=== PATIENT | female | born 1995 | race Caucasian/White ===

== ENCOUNTER 2017-01-07 19:27 | Emergency (ER) | payer BC ==
[2017-01-07] MEDS ORDERED: Venlafaxine EXT RELEASE CAP* 75 MG ONE (20:22)
[2017-01-07 20:26] VITALS: BP 124/75
[2017-01-08] MEDS ORDERED: Venlafaxine EXT RELEASE CAP* 75 MG PO ONE (19:52)
--- NOTE | 2017-01-31 08:20 | ED ---
Psychiatric Complaint - HPI Summary HPI Summary: Pt here w/ request for a 1 x refill of effexor. 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 Does not want to be w/o for fear of withdrawal. Takes 150mg and has for many months w/o difficulty. Denies EATON, numbness, tingling, visual change, chest pain, anxiety, SI/HI. - History Of Current Complaint Chief Complaint: EDGeneral Time Seen by Provider: 01/07/17 19:51 Hx Obtained From: Patient Hx Last Menstrual Period: seasonique q 2 months - Allergies/Home Medications Allergies/Adverse Reactions: Allergies Allergy/AdvReac Type Severity Reaction Status Date / Time Penicillins Allergy Intermediate Rash Unverified 01/07/17 19:33 Amoxicillin Allergy Rash Unverified 01/07/17 19:33 Sulfa Antibiotics Allergy Rash Unverified 01/07/17 19:33 PMH/Surg Hx/FS Hx/Imm Hx Previously Healthy: Yes Endocrine/Hematology History: Denies: Hx Anticoagulant Therapy, Hx Diabetes, Hx Thyroid Disease Cardiovascular History: Denies: Hx Hypertension, Hx Pacemaker/ICD Respiratory History: Reports: Hx Asthma - "only when I'm really exerting myself physically" Denies: Hx Chronic Obstructive Pulmonary Disease (COPD) GI History: Denies: Hx Ulcer History: Denies: Hx Renal Disease Musculoskeletal History: Denies: Hx Rheumatoid Arthritis, Hx Osteoporosis Neurological History: Denies: Hx Dementia, Hx Headaches, Hx Migraine, Hx Seizures Psychiatric History: Reports: Hx Depression - takes effexor 150mg daily Denies: Hx Eating Disorder, Hx of Violent Episodes Against Others, Hx Substance Abuse Infectious Disease History: No Infectious Disease History: Denies: Hx Hepatitis, Hx Human Immunodeficiency Virus (HIV), Hx Tuberculosis , Traveled Outside the [place] in Last 30 Days - Social History Alcohol Use: Rare Substance Use Type: Reports: Marijuana Substance Use Comment - Amount & Last Used: last use this morning Smoking Status (MU): Current Some Day Smoker Type: Cigarettes Review of Systems Negative: Fatigue Negative: Chest Pain Negative: Shortness Of Breath Negative: Vomiting, Nausea Positive: no symptoms reported Neurological: Negative Psychological: Normal All Other Systems Reviewed And Are Negative: Yes Physical Exam Triage Information Reviewed: Yes Vital Signs On Initial Exam: Initial Vitals Temp Pulse Resp BP Pulse Ox 97.4 F 91 16 136/96 100 01/07/17 19:30 01/07/17 19:30 01/07/17 19:30 01/07/17 19:30 01/07/17 19:30 Vital Signs Reviewed: Yes Appearance: Positive: Well-Appearing, No Pain Distress, Well-Nourished Skin: Positive: Warm, Dry Head/Face: Positive: Normal Head/Face Inspection Eyes: Positive: Normal, EOMI, Conjunctiva Clear ENT: Positive: Hearing grossly normal Neck: Positive: Supple Respiratory/Lung Sounds: Positive: Breath Sounds Present Cardiovascular: Positive: Normal, RRR, Pulses are Symmetrical in both Upper and Lower Extremities Musculoskeletal: Positive: Normal, Strength/ROM Intact Neurological: Positive: Normal, Sensory/Motor Intact, Alert, Oriented to Person Place, Time, CN Intact II-III Psychiatric: Positive: Normal - no SI/HI Diagnostics - Vital Signs Vital Signs Temp Pulse Resp BP Pulse Ox 01/07/17 20:24 97.7 F 78 18 124/75 98 01/07/17 19:41 97.4 F 81 17 136/96 99 01/07/17 19:30 97.4 F 91 16 136/96 100 - Laboratory Lab Statement: Any lab studies that have been ordered have been reviewed, and results considered in the medical decision making process. Course/Dx - Course Course Of Treatment: Pt agrees to refil medication tomorrow as her rx is at pharmacy - simple didn't make it in time before close to pick them up. Agrees if she develops danger s/sx of withdrawal (although she has not been without this for > 24 hours) to report back to ED. She will also return if she develops SI/HI. 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 *If you develop homicidal or suicidal ideations, return to ED
== END 2017-01-07 20:29 | disposition home or self-care (01) ==
LOC: ED 19:27
DX: Z76.0 Encounter for issue of repeat prescription (principal)
CPT/HCPCS: 99281; A9270-GY

== ENCOUNTER 2018-03-19 13:31 | Emergency (ER) | payer BC ==
[2018-03-19 13:44] VITALS: BP 140/101
--- NOTE | 2018-03-19 14:44 | ED ---
GI/ HPI - HPI Summary HPI Summary: 23 year old female presents with LLQ pelvic pain for the past day. She has never had this pain before. She did start amlodipine today for the first time and pain started afterwards. She denies any abnormal vaginal discharge. She admits to nausea. She denies any vomiting. She denies any diarrhea or constipation. no dysuria. states since she had intermittent abdominal pain. When it is persistent she is dizzy and feels hot. She has hx of depression and anxiety. has history of htn. currently on period. - History of Current Complaint Chief Complaint: UCAbdominalPain Time Seen by Provider: 03/19/18 14:29 Stated Complaint: PERSONAL Hx Last Menstrual Period: IUD Pain Intensity: 4 - Allergy/Home Medications Allergies/Adverse Reactions: Allergies Allergy/AdvReac Type Severity Reaction Status Date / Time amoxicillin Allergy Rash Verified 03/19/18 13:45 Penicillins Allergy Rash Verified 03/19/18 13:45 Sulfa (Sulfonamide Allergy Rash Verified 03/19/18 13:45 Antibiotics) Home Medications: Home Medications Methylphenidate ER TAB* [Concerta ER TAB*] 27 mg PO DAILY 03/19/18 [History Confirmed 03/19/18] amLODIPine TAB* [Norvasc 5 mg TAB*] 1 tab PO DAILY 03/19/18 [History Confirmed 03/19/18] PMH/Surg Hx/FS Hx/Imm Hx Endocrine/Hematology History: Denies: Hx Anticoagulant Therapy, Hx Diabetes, Hx Thyroid Disease Cardiovascular History: Reports: Hx Hypertension Denies: Hx Pacemaker/ICD Respiratory History: Reports: Hx Asthma - "only when I'm really exerting myself physically" Denies: Hx Chronic Obstructive Pulmonary Disease (COPD) GI History: Denies: Hx Ulcer History: Denies: Hx Renal Disease Musculoskeletal History: Denies: Hx Rheumatoid Arthritis, Hx Osteoporosis Neurological History: Denies: Hx Dementia, Hx Headaches, Hx Migraine, Hx Seizures Psychiatric History: Reports: Hx Depression - takes effexor 150mg daily Denies: Hx Eating Disorder, Hx of Violent Episodes Against Others, Hx Substance Abuse Infectious Disease History: No Infectious Disease History: Denies: Hx Hepatitis, Hx Human Immunodeficiency Virus (HIV), Hx Tuberculosis , Traveled Outside the [place] in Last 30 Days - Family History Known Family History: Positive: Hypertension - Social History Alcohol Use: Rare Substance Use Type: Reports: Marijuana Substance Use Comment - Amount & Last Used: last use this morning Smoking Status (MU): Former Smoker Type: Cigarettes Review of Systems Negative: Fever Negative: Chest Pain Negative: Shortness Of Breath Positive: Abdominal Pain - LLQ, Nausea. Negative: Vomiting All Other Systems Reviewed And Are Negative: Yes Physical Exam Triage Information Reviewed: Yes Vital Signs On Initial Exam: Initial Vitals Temp Pulse Resp BP Pulse Ox 97.9 F 102 18 140/101 100 03/19/18 13:39 03/19/18 13:39 03/19/18 13:39 03/19/18 13:39 03/19/18 13:39 Vital Signs Reviewed: Yes Appearance: Positive: Well-Appearing Skin: Positive: Warm, Dry Head/Face: Positive: Normal Head/Face Inspection Eyes: Positive: Normal, Conjunctiva Clear ENT: Positive: Pharynx normal Respiratory/Lung Sounds: Positive: Clear to Auscultation, Breath Sounds Present Cardiovascular: Positive: Normal, RRR Abdomen Description: Positive: Nontender, Soft Bowel Sounds: Positive: Present Musculoskeletal: Positive: Normal Neurological: Positive: Normal Psychiatric: Positive: Normal Diagnostics - Vital Signs Vital Signs Temp Pulse Resp BP Pulse Ox 03/19/18 13:39 97.9 F 102 18 140/101 100 - Laboratory Lab Statement: Any lab studies that have been ordered have been reviewed, and results considered in the medical decision making process. - Ultrasound No standard instances Ultrasound Interpretation: No Acute Changes Ultrasound Interpretation Completed By: Lu ANDERSEN Course/Dx - Course Course Of Treatment: 23 year old female presents with LLQ pelvic pain for the past day. She has never had this pain before. She did start amlodipine today for the first time and pain started afterwards. She denies any abnormal vaginal discharge. She admits to nausea. She denies any vomiting. She denies any diarrhea or constipation. no dysuria. states since she had intermittent abdominal pain. When it is persistent she is dizzy and feels hot. on exam has nontender abd. pelvic exam normal with blood. u/s normal. urine no infection. patient will follow up with primary about blood pressure as has dx of htn. told that do not have cause for pain could be amlopdine vs menstrual pain. told to take tyenlol or ibuprofen. patient understand and agrees with plan. - Diagnoses Differential Diagnoses - Female: Ovarian Cyst, STD, Urinary Tract Infection Provider Diagnoses: Hypertension, Abdominal pain Discharge - Sign-Out/Discharge Documenting (check all that apply): Patient Departure All imaging exams completed and their final reports reviewed: Yes - Discharge Plan Condition: Good Disposition: HOME Patient Education Materials: Acute Abdominal Pain (ED) Referrals: Irasema Vizcarra MD [Primary Care Provider] - Additional Instructions: Take ibuprofen or Tylenol for pain as needed every 6 hours Follow up with primary within 5 days Return to ED if develop any new or worsening symptoms - Billing Disposition and Condition Condition: GOOD Disposition: Home
--- NOTE | 2018-03-19 16:04 | RAD ---
Indication: Left lower quadrant pain. Real-time sonography of the pelvis was performed utilizing endovaginal technique. The uterus measures 6.1 x 3.5 x 3.9 cm. Endometrial echo measures 5.1 mm. Intrauterine device is in place. Right ovary measures 3.7 x 2.7 x 2.6 cm with a follicle in the right ovary measuring up to 2.9 cm. Left ovary measures 3.1 x 1.4 x 1.7 cm. Doppler interrogation demonstrates flow in both ovaries. IMPRESSION: No adnexal masses. IUD in place.
== END 2018-03-19 16:33 | disposition home or self-care (01) ==
LOC: UCEAST 13:31
DX: R10.32 Left lower quadrant pain (principal); I10 Essential (primary) hypertension; Z88.0 Allergy status to penicillin; Z88.1 Allergy status to other antibiotic agents; Z87.891 Personal history of nicotine dependence
CPT/HCPCS: 76830; 81003; 84702; 87480; 87491; 87510; 87591; 87661; 99212; G0463